=== PATIENT | female | born 2000 | race Caucasian/White ===

== ENCOUNTER 2025-09-07 19:40 | Emergency (ER) | payer BC, SELFPAY ==
--- NOTE | 2025-09-07 19:41 | ED.FEMALEGU ---
HPI - Female Genitourinary General Chief complaint: Urogenital-Female Stated complaint: UTI Time Seen by Provider: 09/07/25 19:41 Source: patient Mode of arrival: ambulatory Limitations: no limitations History of Present Illness HPI Narrative: Puja is a 24-year-old female patient presenting to the clinic today with complaints of a yellow foul-smelling vaginal discharge x2 days. Reports she last had intercourse with her partner approximately 1 week ago and she has recently used lubricants and toys. She is not concern for any sexually transmitted infection. States she thinks she has bacterial vaginosis. Denies any abdomen pain, fevers, chills, body aches. Does report some low back pain. She has not have any urinary symptoms. Related Data Home Medications ?Medication ?Instructions ?Recorded ?Confirmed ?Last Taken ?Type trazodone 50 mg tablet mg PO 04/28/24 03/02/25 Unknown History lamotrigine 25 mg tablet 75 mg PO DAILY 05/07/24 03/02/25 Unknown History levonorgestrel 14 mcg/24 hr (up to 1 device intrauterine ONCE 05/07/24 03/02/25 Unknown History 3 yrs) 13.5 mg intrauterine device (Felicita) sumatriptan succinate 100 mg tablet mg PO 05/07/24 03/02/25 Unknown History topiramate 25 mg tablet mg PO 03/02/25 03/02/25 Unknown History venlafaxine 150 mg 150 mg PO DAILY 03/02/25 03/02/25 Unknown History capsule,extended release 24 hr (Effexor XR) bupropion HCl 300 mg 24 hr tablet, mg PO 09/07/25 Unknown History extended release phentermine 30 mg capsule mg 09/07/25 Unknown History venlafaxine 37.5 mg mg PO 09/07/25 Unknown History capsule,extended release 24 hr Allergies Allergy/AdvReac Type Severity Reaction Status Date / Time codeine AdvReac Unknown Vomiting Verified 09/07/25 19:54 Review of Systems Review of Systems: Pertinent positives per HPI. Patient denies any fever, chills, rash, headache, visual changes, dizziness, cough, runny nose, sore throat, shortness of breath, chest pain, palpitations, nausea, vomiting, diarrhea, constipation, abdominal pain, or any urinary issues. [facility] Past Medical History Medical History PTSD (post-traumatic stress disorder) Anxiety Depression Surgical History Surgical History History of tonsillectomy and adenoidectomy 2008 Family History Family History Father Anxiety and depression Mother Anxiety and depression Grandparent Anxiety and depression Hypertension Heart disease Grandparent Diabetes mellitus Heart disease Anxiety and depression Alzheimer disease Other Colon cancer great aunt Social History Social History Smoking status: Never smoker Alcohol intake: current Alcohol use details: rare Substance use: never Substance use type: does not use Lack of Transportation: No Lack of Food: Never True Current Housing: I Have Housing Concerned About Future Housing: No Difficulty Paying Gas/Electric Bills: No Difficulty Paying for Meds: No Currently Unemployed: No Education: Bachelor's Degree Difficulty w/ Childcare or Family Care: No Living arrangements: with family Additional living arrangements comments: boyfriend Occupation/Education: occupation 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 There is no relevant family history pertinent to the patient complaint. Exam Narrative: General: Well-developed, overweight, in no apparent distress. Head: Normocephalic, atraumatic. Cardio: Regular rate and rhythm, s1 and s2 normal, no murmur appreciated. Resp: Clear to auscultation bilaterally, no rhonchi, rales, wheezing or rubs. Abdomen: Soft, pliable, bowel sounds present in all quadrants, non-tender to palpation, no organomegly, no CVAT tenderness. : Deferred Course Course Level of Care: Express Care Visit Vital Signs Vital signs: Vital Signs Temperature 36.4 C L 09/07/25 20:00 Pulse Rate 90 09/07/25 20:00 Respiratory Rate 18 09/07/25 20:00 Blood Pressure 127/83 09/07/25 20:00 Pulse Oximetry 100 09/07/25 20:00 Oxygen Delivery Room Air 09/07/25 20:00 Temperature 36.4 C L 09/07/25 20:00 Pulse Rate 90 09/07/25 20:00 Respiratory Rate 18 09/07/25 20:00 Blood Pressure 127/83 09/07/25 20:00 Pulse Oximetry 100 09/07/25 20:00 Oxygen Delivery Room Air 09/07/25 20:00 MDM MDM Narrative Medical decision making narrative: At the time of visit patient is resting comfortably on the exam table. Patient appears to be nontoxic. Complaints of a yellow foul-smelling vaginal discharge x2 days. Reports she last had intercourse with her partner approximately 1 week ago and she has recently used lubricants and toys. She is not concern for any sexually transmitted infection. States she thinks she has bacterial vaginosis. Denies any abdomen pain, fevers, chills, body aches. Does report some low back pain. She has not have any urinary symptoms. On exam patient has soft, pliable, nondistended abdomen, no CVAT tenderness, no organomegaly, bowel sounds present all 4 quadrants, deferred. Patient self swab for BV and genital culture. Offered chlamydia, gonorrhea, Trichomonas testing and patient declined. Labs: BV and genital culture was sent to the lab Plan: I suspect patient has vaginal discharge that is likely BV. She is declining chlamydia, gonorrhea, and Trichomonas testing at this time. We will send in prescription for metronidazole. Supportive measures were discussed with the patient and they voiced understanding discharge instructions and agrees to treatment plan. Return precautions reviewed Differential Diagnosis Differential Diagnosis: Differential diagnostic considerations for female urogenital issues include urinary tract infection, bacterial vaginosis, cervicitis, ovarian cyst, vaginitis, STI exposure, ovarian torsion, ectopic , cyst of Bartholin?s gland, cystitis, dysmenorrhea. Discharge Plan Discharge Clinical Impression: Vaginal discharge, Bacterial vaginosis Patient Disposition: Home Condition: Stable Instructions: Antibiotic Form, Bacterial Vaginosis (ED), Vaginal Discharge (ED) Additional Instructions: Testing for bacterial vaginosis and genital culture was sent to the lab. Take metronidazole as prescribed Increase fluids and stay well hydrated Avoid intercourse for 2 weeks Follow-up with your OBGYN or PCP in 1-2 weeks if symptoms persist Go to the emergency room if her symptoms worsen-developed fever, abdominal pain, pelvic pain, or any other concerning symptoms. Patient Language: Qatari Prescriptions: New metronidazole 500 mg tablet 500 mg PO BID 7 Days Qty: 14 0RF No Action venlafaxine 37.5 mg capsule,extended release 24hr PO phentermine 30 mg capsule bupropion HCl 300 mg tablet extended release 24 hr PO lamotrigine 25 mg tablet 75 mg PO DAILY trazodone 50 mg tablet PO venlafaxine [Effexor XR] 150 mg capsule,extended release 24hr 150 mg PO DAILY sumatriptan succinate 100 mg tablet PO Felicita 14 mcg/24 hr (3 yrs) 13.5 mg intrauterine device 1 device intrauterine ONCE Rx Instructions: as a single dose topiramate 25 mg tablet PO Follow-up/Referrals: Fawn,MD Yun [Non-Staff] Time of Disposition: 19:54 Quality NIHSS Nursing Documentation ED NIHSS nursing documentation: reviewed/agree
[2025-09-07 20:00] VITALS: BP 127/83; PULSE 90; RESP 18; TEMP 36.4; O2SAT 100
== END 2025-09-07 20:07 | disposition home or self-care (01) ==
PROVIDERS: Emergency Provider Nurse Practitioner Family; PCP Nurse Practitioner
DX: N76.0 Acute vaginitis (principal); Z79.899 Other long term (current) drug therapy
CPT/HCPCS: 87070; 87798; 99213; G0463